=== PATIENT | female | born 1990 | race Caucasian/White ===

== ENCOUNTER → 2021-08-07 12:16 | Outpatient (REF) | payer BC, SELFPAY | LOC: ANHLAB 12:16 | PROVIDERS: PCP Internal Medicine; Visit Provider Surgery Plastic and Reconstructive Surgery | DX: D22.9 Melanocytic nevi, unspecified (principal) | CPT/HCPCS: 88305 ==

== ENCOUNTER 2023-08-07 08:09 | Outpatient (RCR) | payer BC, SELFPAY ==
[2023-08-07] MEDS: RHO(D) IMMUNE GLOBULIN 300 MCG/2 ML SYRINGE IM (13:08)
== END 2023-11-05 23:59 | disposition home or self-care (01) ==
LOC: ANHLAB 08:09
PROVIDERS: PCP Internal Medicine; Visit Provider Obstetrics & Gynecology
DX: Z29.13 Encounter for prophylactic Rho(D) immune globulin (principal); O36.0190 Maternal care for anti-D [Rh] antibodies, unspecified trimester, not applicable or unspecified; Z3A.00 Weeks of gestation of pregnancy not specified
CPT/HCPCS: 36415; 85461; 86850; 86900; 86901; 90384; 96372; J2790

== ENCOUNTER 2023-08-28 15:53 | Observation (INO) | payer BC, SELFPAY ==
[2023-08-28] VITALS (16 sets, daily range): BP systolic 126–141; BP diastolic 74–94; PULSE 99–116; RESP 17–18; TEMP 36.1–36.8; O2SAT 95–99; BMI 35.4
[2023-08-28 17:06] LABS: Basophils Percent Auto 0.2 % (0.2-1.2); Eosinophils Percent Auto 0.2 % (0-4.4); Hematocrit 37.6 % (37.0-47.0); Hemoglobin 12.7 g/dL (12.0-15.0); Immature Granulocyte Absolute 0.04 K/mm3 (0.00-0.031); Immature Granulocyte Percent A 0.4 % (0-0.5); Lymphocytes Absolute Auto 1.96 K/mm3 (0.9-3.2); Lymphocytes Percent Auto 21.9 % (18.3-44.2); Mean Corpuscular HGB Conc 33.8 g/dl (32-36); Mean Corpuscular Hemoglobin 30.8 pg (26-34); Mean Platelet Volume 10.4 fl (7.4-10.4); Monocytes Absolute Auto 0.6 K/mm3 (0.1-0.6); Monocytes Percent Auto 6.1 % (2.6-8.5); Neutrophils Absolute Auto 6.4 K/mm3 (1.3-6.7); Neutrophils Percent Auto 71.2 % (45.5-73.1); Platelet Count Result 234 k/mm3 (150-375); Red Blood Count 4.13 M/mm3 (4.2-5.4)
[2023-08-28] MEDS: LACTATED RINGERS 1,000 ML 75 ML IV CONT (17:07)
[2023-08-28] MEDS: MAGNESIUM SULF 4 GM/WATER100ML 4 GM/100 ML BAG IVPB (17:09)
[2023-08-28] MEDS: BETAMETHASONE SOD PHOS/ACETATE 30 MG/5 ML VIAL 12 MG IM (17:10)
[2023-08-28 17:16] LABS: Alanine Aminotransferase 25 U/L (6-35); Albumin Level 3.8 g/dL (3.5-5.1); Alkaline Phosphatase 119 U/L (38-126); Anion Gap 9 mmol/L (4-12); Aspartate Amino Transferase 27 U/L (14-36); Bilirubin,Total 0.4 mg/dL (0.2-1.3); Blood Urea Nitrogen 6 mg/dL (7-17); Calcium 9.4 mg/dL (8.4-10.2); Carbon Dioxide 19 mmol/L (22-30); Chloride 109 mmol/L (98-107); Estimated Glomerular Filt Rate > 60; Glucose 130 mg/dL (65-110); Potassium 3.5 mmol/L (3.4-5.0); Sodium 137 mmol/L (137-145)
--- NOTE | 2023-08-28 17:33 | PM.IMHP ---
H&P: HPI History of Present Illness Date/Time: 08/28/23 17:33 Chief Complaint: Gush of fluid Narrative: 33 y/o G1 at 31 4/7 weeks who had a gush of blood-tinged fluid at 1515 today. She has some cramping, but does not feel overt contractions. Good movement. complicated by chronic HTN vs gestational HTN. SROM diagnosed on arrival to L&D with positive RomPlus. Review of Systems Review of Systems: All systems reviewed & are unremarkable except as noted in HPI and below PMFSH Past Medical History Medical History History of chronic urticaria History of herpes genitalis Family History Family History Grandparent Ovarian cancer Social History Social History Smoking status: Never smoker Alcohol intake: current Substance use: never Meds Home Medications and Allergies Home Medications Medication Instructions Recorded Confirmed Type cetirizine [Allergy Relief 20 mg PO DAILY 08/07/21 08/28/23 History (cetirizine)] acetaminophen 500 mg tablet 500 mg PO Q6H PRN Pain 08/28/23 08/28/23 History famotidine 20 mg tablet (Pepcid) 20 mg PO DAILY PRN Heartburn 08/28/23 08/28/23 History nifedipine 30 mg tablet,extended 60 mg PO HS 08/28/23 08/28/23 History release 24 hr prenat.vits,dixon,sut-lulk-txrfa 1 tablet PO DAILY 08/28/23 08/28/23 History Allergies Allergy/AdvReac Type Severity Reaction Status Date / Time No Known Allergies Allergy Verified 08/07/21 12:11 Vital Signs Vital Signs - 24 hr 08/28/23 17:07 08/28/23 17:30 Pulse Rate 111 H 116 H Blood Pressure 135/82 141/78 H Exam Const: Orientation/consciousness: patient oriented x3 Other: Well-developed, well-nourished female in no acute distress. Neck: Thyroid: thyroid normal Lymphatic: no lymphadenopathy noted (in neck, axilla or inguinal nodes) Resp: Effort & Inspection: normal respiratory effort Auscultation: clear to auscultation bilaterally Cardio: Rate: regular rate Rhythm: regular rhythm Heart sounds: S1 normal heart sound present and S2 normal heart sound present GI: Other: ABD: Soft, nontender, nondistended, gravid. NST 150 reactive. TOCO irregular contractions. No guarding or rebound tenderness. No hepatosplenomegaly. : General: Yes no CVA tenderness Other: RomPlus positive. Cervix visually closed. Back/Spine/Pelvis: Back: no CVA tenderness Skin: General skin exam: normal color and no rashes or lesions noted Neuro: General: patient oriented x3 Extrem: Other: Extremities: nontender with no edema Psych: Mental Status: mental status grossly normal Affect: normal affect H&P: Results Labs Labs: Short CBC 08/28/23 Range/Units 16:58 WBC 9.0 (4.5-10.0) K/mm3 Hgb 12.7 (12.0-15.0) g/dL Hct 37.6 (37.0-47.0) % Plt Count 234 (150-375) k/mm3 BMP 08/28/23 16:58 Sodium 137 Potassium 3.5 Chloride 109 H Carbon Dioxide 19 L BUN 6 L Creatinine 0.40 L Glucose 130 H Calcium 9.4 Liver Function 08/28/23 Range/Units 16:58 Total Bilirubin 0.4 (0.2-1.3) mg/dL AST 27 (14-36) U/L ALT 25 (6-35) U/L Alkaline Phosphatase 119 (38-126) U/L Albumin 3.8 (3.5-5.1) g/dL Assessment and Plan Assessment and plan (1) PROM (premature rupture of membranes): Code(s): O42.90 - Premature rupture of membranes, unspecified as to length of time between rupture and onset of labor, unspecified weeks of gestation Status: Acute Assessment and Plan: A: PROM at 31 4/7 weeks gestation. P: Magnesium sulfate, steroids, ampicillin. Reviewed care with Dr. Fatima at [facility], and she has agreed to accept the transfer. I have reviewed risks/benefits/alternatives with the patient and her partner. They understand and agree to the transfer.
[2023-08-28] MEDS: MAGNESIUM SULF 20GM/WATER500ML 500 ML 50 MG IV CONT (17:44)
[2023-08-28] MEDS: AMPICILLIN 2 GM/NS 100 ML 2 GM/100 ML BAG IVPB (18:01)
--- NOTE | 2023-08-28 19:38 | PC.NURSE ---
Gave Kaykay STILL from [facility] report on patient at 191. Patient transported with Kaykay STILL and EMT. Discharged at 193 to [facility]. Patient stable at this time.
--- NOTE | 2023-09-28 12:17 | P.PNOB_ITS ---
OB - Triage/Final Diagnosis Visit Information Comments/Additional reasons for admission: I have assessed the risk for this patient, [place], and determined that she would benefit from observation care. Evaluation Laboratory results: Laboratory Tests 08/28/23 16:58 WBC 9.0 RBC 4.13 L Hgb 12.7 Hct 37.6 MCV 91.0 MCH 30.8 MCHC 33.8 RDW 12.0 Plt Count 234 MPV 10.4 Immature Gran % (Auto) 0.4 Neut % (Auto) 71.2 Lymph % (Auto) 21.9 Armstrong % (Auto) 6.1 Eos % (Auto) 0.2 Baso % (Auto) 0.2 Lymph # (Auto) 1.96 Armstrong # (Auto) 0.6 Eos # (Auto) 0.0 Baso # (Auto) 0.0 Abs Immat Gran (auto) 0.04 H Absolute Neuts (auto) 6.4 Absolute Nucleated RBC 0.000 Nucleated RBC % 0.0 Sodium 137 Potassium 3.5 Chloride 109 H Carbon Dioxide 19 L Anion Gap 9 BUN 6 L Creatinine 0.40 L Estim Creat Clear Calc Not Reportable Estimated GFR > 60 Glucose 130 H Calcium 9.4 Total Bilirubin 0.4 AST 27 ALT 25 Alkaline Phosphatase 119 Total Protein 7.0 Albumin 3.8 Final Diagnosis (1) Spotting affecting : Code(s): O26.859 - Spotting complicating , unspecified trimester Status: Acute
== END 2023-08-28 19:31 | disposition short-term general hospital (02) ==
PROVIDERS: Admitting Provider Obstetrics & Gynecology; PCP Internal Medicine; Visit Provider Obstetrics & Gynecology
DX: O42.913 Preterm premature rupture of membranes, unspecified as to length of time between rupture and onset of labor, third trimester (principal); Z3A.31 31 weeks gestation of pregnancy
CPT/HCPCS: 36415; 80053; 84112; 85025; 96365; 96372; 96375; G0378; G0379; J0290; J0702; J3475; J7120